=== PATIENT | male | born 1970 | race Caucasian/White ===

== ENCOUNTER 2017-08-04 20:54 | Emergency (ER) | payer OTHER ==
[~2017-08-04] VITALS: Ht 177.8 cm; Wt 66.7 kg
[~2017-08-04 20:54] MED LIST: CYCLOBENZAPRINE5 MG PO; FLEXERIL10 MG PO; MEDROL DOSEPAK4 MG PO; NAPROSYN500 MG PO; TRAMADOL HCL50 MG PO; no home meds
[2017-08-04] MEDS ORDERED: FIORICET 50-301 EAC1 PO (23:53)
[2017-08-04] MEDS ORDERED: REGLAN10 MG PO (23:53)
[2017-08-05] VITALS: BP 142/91
== END 2017-08-05 00:30 | disposition left against medical advice (07) ==
LOC: RME 20:54 → EME 20:54 → RME 08-05 00:30
DX: R51 Headache (principal); R42 Dizziness and giddiness; V49.40XA Driver injured in collision with unspecified motor vehicles in traffic accident, initial encounter; Y92.410 Unspecified street and highway as the place of occurrence of the external cause; F17.200 Nicotine dependence, unspecified, uncomplicated
CPT/HCPCS: 70450; 99281; 99283